=== PATIENT | male | born 1990 | race Two or more races ===

== ENCOUNTER 2021-03-12 14:54 | Emergency (ER) | payer SELFPAY ==
[2021-03-12 15:07] VITALS: BP 134/71; PULSE 93; RESP 18; TEMP 36.6; O2SAT 96; BMI 43.0
--- NOTE | 2021-03-12 16:36 | ED.LOWEXIN ---
HPI - Extremity Injury (Lower) General Chief Complaint: Extremity Injury, Lower Stated Complaint: leg pain Time Seen by Provider: 03/12/21 16:12 Source: patient Mode of arrival: ambulatory Limitations: no limitations History of Present Illness HPI Narrative: 30 y/o male with no significant medical history presents to the ER with left groin and anterior thigh pain that started when he was at work yesterday. 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 He had immediate pain in his left groin and thigh muscle. Worse with movement and palpation. No bruising or skin changes. No urinary symptoms. No testicular pain, no penile pain, no abdominal pain. He is able to ambulate normally but with some discomfort. MD complaint: thigh injury Onset (ago): day(s) (1) Injury: Left: hip and thigh Type of Injury: hyperextension Place: work Severity scale (1-10): 6 Relieving factors: NSAID Exacerbating factors: movement and palpation Associated symptoms: ambulatory Other symptoms: none Treatments prior to arrival: NSAIDS Related Data Previous Rx's Medication Instructions Recorded cyclobenzaprine 10 mg PO TID PRN #8 tab 03/12/21 ibuprofen 800 mg PO Q8H PRN #15 tab 03/12/21 lidocaine [Lidoderm] 1 patch TOPICAL DAILY #15 ea 03/12/21 Allergies Allergy/AdvReac Type Severity Reaction Status Date / Time Sulfa (Sulfonamide Allergy Severe ANAPHYLAXIS Unverified 03/12/21 15:07 Antibiotics) [SULFA (SULFONAMIDE ANTIBIOTICS)] Review of Systems Review of Systems: Constitutional: No Fever, No Chills s Cardiovascular: No Chest Pain, No SOB,No Edema Respiratory: No Cough, No Sputum Gastrointestinal: No Nausea, No Vomiting, No Diarrhea, No abdominal Pain Genitourinary: No Dysuria, No Urinary Frequency, No Hematuria Musculoskeletal: No joint pain, + Myalgias Skin: No Skin Lesions, No rash Neuro: No Weakness, No Numbness, No Dizziness, No Headache Psych: No Anxiety/Panic, No Depression Heme/Lymph: No Bruising, No Lymphadenopathy PMFSH Past Medical History Attestation statement: The following information was validated with the patient. Medical History (Updated 03/12/21 @ 16:38 by ROBSON Jamison) Lower extremity surgery planned Obesity Social History Social History Advance Directives: No Advance Directives Information Provided: Yes Physical Exam Vital Signs: Vital Signs: Last Vital Signs Temp 97.9 F 03/12/21 15:07 Pulse 93 03/12/21 15:07 Resp 18 03/12/21 15:07 BP 134/71 03/12/21 15:07 Pulse Ox 96 03/12/21 15:07 Body Mass Index 43.0 Appearance: Alert. Oriented X3. No acute distress. HEENT: normal inspection CVS: Normal heart rate and rhythm. Pulses normal. Respiratory: No respiratory distress. Skin: Skin warm and dry. Normal skin color. Normal skin turgor. No rashes. Abd: obese, soft, non-tender. Genitalia: normal external genitalia, no testicular tenderness or swelling. no palpable inguinal hernia Extremities: left inner thigh and inguinal area with soft tissue tenderness, no ecchymosis or swelling, no erythema or warmth, normal ROM of left hip and knee. Neuro: Oriented X 3. No motor deficit. No sensory deficit. Course Course Course Narrative: 30 y/o male presenting with left groin and thigh pain after that started yesterday while at work in the setting of lifting and twisting. Exam and clinical presentation are consistent with muscular strain. Will treat with NSAID, muscle relaxer, KRISTIN wrap for compression. No symptoms. Stable for discharge with outpatient follow up. Critical Care Time Critical Care Time Critical Care Time: No Discharge Plan Discharge Clinical Impression: Groin strain Qualifiers: Encounter type: initial encounter Laterality: left Qualified Code(s): S76.212A - Strain of adductor muscle, fascia and tendon of left thigh, initial encounter Patient Disposition: Home, Self-Care Instructions: Groin Strain (ED) Additional Instructions: Use ice and KRISTIN wrap for compression and support. Take prescribed medications as needed for pain. Rest. No strenuous activity. Follow up with your doctor as needed. Prescriptions: New cyclobenzaprine 10 mg tablet 10 mg PO TID PRN (Reason: muscle spasm) Qty: 8 RF: 0 ibuprofen 800 mg tablet 800 mg PO Q8H PRN (Reason: pain) Qty: 15 RF: 0 lidocaine [Lidoderm] 5 % adhesive patch,medicated 1 patch topical DAILY Qty: 15 RF: 0 Stand Alone Forms: Work/School Release
== END 2021-03-12 17:35 | disposition home or self-care (01) ==
PROVIDERS: Emergency Provider Emergency Medicine
DX: S76.912A Strain of unspecified muscles, fascia and tendons at thigh level, left thigh, initial encounter (principal); X50.1XXA Overexertion from prolonged static or awkward postures, initial encounter; Y93.9 Activity, unspecified; Y92.89 Other specified places as the place of occurrence of the external cause; Y99.0 Civilian activity done for income or pay
CPT/HCPCS: 99283